=== PATIENT | female | born 1975 | race American Indian/Alaskan Native ===

== ENCOUNTER 2018-06-21 08:31 | Emergency (ER) | payer MEDICAID ==
[~2018-06-21] VITALS: Ht 162.6 cm; Wt 90.7 kg
[2018-06-21 10:29] LABS: Basophils # (auto) 0.1 uL; Basophils % (auto) 1.1 % (0.0-2.0); Eosinophils # (auto) 0 uL; Eosinophils % (auto) 0.2 % (0.0-7.0); Hematocrit 40.3 % (36.0-46.0); Lymphocytes # (auto) 2.2 uL; Lymphocytes % (auto) 33.5 % (10.0-50.0); Mean Corpuscular Hemoglobin 28.5 pg (28.0-32.0); Mean Corpuscular Hgb Conc. 32.2 g/dL (32.0-36.0); Mean Corpuscular Volume 88.6 fL (80.0-100.0); Monocytes # (auto) 0.3 uL; Monocytes % (auto) 4.2 % (0.0-12.0); Platelet Count (auto) 242 10^3/uL (140-450); Red Blood Cells 4.55 10^6/uL (4.0-5.20); Red Cell Distribution Width 14.5 % (11.8-14.3); White Blood Cell 6.5 10^3/uL (4.4-10.8)
[2018-06-21 10:42] LABS: Albumin 3.7 g/dL (3.4-5.0); Calcium 8.4 mg/dL (8.5-10.1); Potassium 3.9 mmol/L (3.5-5.1)
[2018-06-21 10:44] LABS: BUN/Creatinine Ratio 21.2; Bilirubin, Total 0.4 mg/dL (0.2-1.0); Total Protein 7.2 g/dL (6.4-8.2)
[2018-06-21 10:46] LABS: Urine Bacteria FEW /hpf (None Seen); Urine Blood Negative /uL (Negative); Urine Mucus FEW (None Seen); Urine Specific Gravity 1.012 (1.001-1.035); Urine WBC 2 /hpf (0 - 5)
[2018-06-21] MEDS ORDERED: LORazepam 0.5 MG TAB PO ONE (12:00)
[2018-06-21 12:38] VITALS: BP 120/69
== END 2018-06-21 13:16 | disposition home or self-care (01) ==
LOC: ER 08:31
DX: F41.9 Anxiety disorder, unspecified (principal); R19.7 Diarrhea, unspecified; F12.90 Cannabis use, unspecified, uncomplicated; Z90.49 Acquired absence of other specified parts of digestive tract
CPT/HCPCS: 36415; 80053; 81001; 81025; 85025; 87493